=== PATIENT | female | born 1985 | race Caucasian/White ===

== ENCOUNTER 2021-10-23 15:43 | Emergency (ER) | payer OTHER ==
[~2021-10-23] VITALS: Ht 162.6 cm; Wt 72.6 kg
[2021-10-23] MEDS ORDERED: LEVOTHYROXINE25 MCG PO (16:00)
[2021-10-23] MEDS ORDERED: COZAAR25 MG PO (16:00)
== END 2021-10-23 18:17 | disposition home or self-care (01) ==
LOC: ER 15:43
DX: G43.909 Migraine, unspecified, not intractable, without status migrainosus (principal); I10 Essential (primary) hypertension; E05.90 Thyrotoxicosis, unspecified without thyrotoxic crisis or storm

== ENCOUNTER 2022-05-22 10:07 | Emergency (ER) | payer OTHER ==
[~2022-05-22] VITALS: Ht 162.6 cm; Wt 73.0 kg
[~2022-05-22 10:07] MED LIST: COZAAR25 MG PO; LEVOTHYROXINE25 MCG PO
[2022-05-22] MEDS ORDERED: ATORVASTATIN CA20 MG PO (10:40)
== END 2022-05-22 11:36 | disposition home or self-care (01) ==
LOC: ER 10:07
DX: H66.92 Otitis media, unspecified, left ear (principal)